=== PATIENT | male | born 1985 | race Caucasian/White ===

== ENCOUNTER → 2022-12-01 | Outpatient (CLI) | payer BC, SELFPAY ==
--- NOTE | 2022-12-01 09:00 | MRI_ITS ---
HISTORY: Blurred vision and pain in right eye, right optic neuritis. TECHNIQUE: Multiplanar and multisequence MR images of the brain and orbits were obtained before and after the intravenous administration of 15 mL Clariscan. 388 images. COMPARISON: None. FINDINGS: BRAIN PARENCHYMA: Mild foci of increased T2 FLAIR signal in the bilateral cerebral white matter. No enhancing lesion in the brain parenchyma. No abnormal focus of restricted diffusion. No acute intracranial hemorrhage identified. CSF SPACES: Cerebral ventricles, cortical sulci, and other extra-axial CSF spaces within normal limits in size. No significant midline shift or other mass effect.No extra-axial fluid collection. VASCULAR SYSTEM: Major intracranial flow voids are maintained. PARANASAL SINUSES AND MASTOID AIR CELLS: No significant air fluid levels. ORBITS: Mildly increased T2 signal in the right optic nerve sheath distally with mild enhancement of the optic nerve and sheath. Symmetric globes and extraocular muscles. No fluid collection or enhancing retrobulbar mass. SELLA/SUPRASELLAR REGION: Unremarkable pituitary gland without suprasellar lesion. Unremarkable optic chiasm. MRI/Brain W/WO Contrast IMPRESSION: Mild enhancement of the right optic nerve and optic nerve sheath distally, compatible with the history of optic neuritis. Mild chronic white matter changes which can be seen with demyelinating disease, sequela of nonspecific inflammation, or small vessel ischemic gliosis. Electronically Signed: Mercedes Mittal MD at 14:00 EST ,
== END | disposition home or self-care (01) ==
PROVIDERS: PCP Nurse Practitioner Primary Care; Referring Provider Ophthalmology; Visit Provider Ophthalmology
DX: H46.9 Unspecified optic neuritis (principal)
CPT/HCPCS: 70553; A9575

== ENCOUNTER → 2025-08-08 | Outpatient (CLI) | payer OTHER, SELFPAY ==
--- NOTE | 2025-08-08 16:01 | CT_ITS ---
PROCEDURE: CT ABD/PELVIS W/WO CONTRAST 08/08/2025 REASON FOR EXAM: GROSS HEMATURIA TECHNIQUE: Procedure Code: [id number] Modality: CT Procedure: CT ABD/PELVIS W/WO CONTRAST Coronal and Sagittal reconstruction series were provided. CONTRAST: Isovue 370 VOLUME: 1 0 mL One or more dose reduction techniques were used (e.g., Automated exposure control, adjustment of the mA and/or kV according to patient size, use of iterative reconstruction technique. RADIATION DOSE SUMMARY: CTDlvol: 42 mGy DLP: 1696 mGycm COMPARISON: None FINDINGS: Lung bases: Negative. ABDOMEN Liver: Small hypodensities in the liver likely cysts. Biliary system: Negative. Negative for intrahepatic or extrahepatic ductal dilatation. Gallbladder: Contracted negative for cholecystitis. Spleen: Negative. Pancreas: Negative. Adrenals: Negative. Kidneys: Negative. Negative for kidney stones, cysts or masses. Bowel: Increased stool throughout the colon with occasional diverticula. No active diverticulitis. Negative for small or large-bowel obstruction. Appendix: The appendix is not identified. There is no inflammatory process identified in the right lower quadrant to suggest appendicitis. Vasculature: Negative for atherosclerotic vascular calcifications of the abdominal aorta and its branches. Peritoneum / Retroperitoneum: Negative. PELVIS Lymph nodes: Negative for inguinal or iliac adenopathy. Bladder: Negative. Reproductive Organs: Prostate negative. Bones and Soft Tissues: Age appropriate appearance of the lumbar spine hips and pelvis. CT/CT Abd/Pelvis W/WO Contrast IMPRESSION: Negative for acute intra-abdominal or pelvic pathology. Negative for kidney stones. Mild constipation. Reading Location: [id number]
== END | disposition home or self-care (01) ==
LOC: CT 15:57
PROVIDERS: PCP Nurse Practitioner Primary Care; Referring Provider Urology; Visit Provider Urology
DX: R31.0 Gross hematuria (principal)
CPT/HCPCS: 74178; Q9967

== ENCOUNTER → 2025-09-19 | Outpatient (CLI) | payer OTHER, SELFPAY | END | disposition home or self-care (01) | LOC: MRI 12:27 | PROVIDERS: PCP Nurse Practitioner Primary Care | DX: G37.9 Demyelinating disease of central nervous system, unspecified (principal) | CPT/HCPCS: 70553; 72156; A9575 ==